=== PATIENT | male | born 1980 | race Caucasian/White ===

== ENCOUNTER 2022-11-26 05:57 | Emergency (ER) | payer OTHER ==
[~2022-11-26] VITALS: Ht 177.8 cm; Wt 100.7 kg
[~2022-11-26 05:57] MED LIST: AMPDEX10CR PO; AMPDEX5; ERYT.5TO RIGHTEYE; HYDACE5 PO; Norco 5-325 Ta1 EACH PO; OFLO.3OPSO RIGHTEYE
== END 2022-11-26 07:36 | disposition home or self-care (01) ==
LOC: ER 05:57
DX: R04.2 Hemoptysis (principal); U07.1 COVID-19; Z88.0 Allergy status to penicillin; Z88.8 Allergy status to other drugs, medicaments and biological substances
CPT/HCPCS: 36415; 71045; 93005; 93010; 99284-25

== ENCOUNTER 2024-07-06 15:52 | Emergency (ER) | payer OTHER ==
[~2024-07-06] VITALS: Ht 177.8 cm; Wt 96.2 kg
[2024-07-06] MEDS ORDERED: Diphth,Pertuss(Acell),Tet Vac 0.5 ML VIAL IM ONE (16:00)
[2024-07-06 16:01] VITALS: BP 153/108
[2024-07-06] MEDS ORDERED: Ketorolac Tromethamine 30mg Vial IM ONE (17:20)
== END 2024-07-06 18:33 | disposition home or self-care (01) ==
LOC: ER 15:52
DX: S01.01XA Laceration without foreign body of scalp, initial encounter (principal); S06.0X0A Concussion without loss of consciousness, initial encounter; J44.9 Chronic obstructive pulmonary disease, unspecified; I10 Essential (primary) hypertension; W22.8XXA Striking against or struck by other objects, initial encounter; Z88.0 Allergy status to penicillin; Z88.8 Allergy status to other drugs, medicaments and biological substances; Z87.891 Personal history of nicotine dependence
CPT/HCPCS: 12002; 70450; 90471; 90715; 96372-59; 99283-25; J1885

== ENCOUNTER → 2024-09-07 | Outpatient (CLI) | payer OTHER | LOC: LAB SHORT 12:12 → LAB 12:12 | DX: J02.9 Acute pharyngitis, unspecified (principal) | CPT/HCPCS: 87081; 87147 ==

== ENCOUNTER 2025-09-02 11:02 | Emergency (ER) | payer OTHER ==
[~2025-09-02] VITALS: Ht 177.8 cm; Wt 97.5 kg
[2025-09-02 11:29] VITALS: BP 144/80
[2025-09-02] MEDS ORDERED: Oxymetazoline 0.05% Nasal Relief Spray 15mL BTL ONE (12:50)
[2025-09-02] MEDS ORDERED: Lidocaine HCl 4% 5 ML SDA INH ONE (12:50)
== END 2025-09-02 13:45 | disposition home or self-care (01) ==
LOC: ER 11:02
DX: R09.A2 Foreign body sensation, throat (principal); I10 Essential (primary) hypertension; J44.9 Chronic obstructive pulmonary disease, unspecified; Z87.891 Personal history of nicotine dependence; Z88.6 Allergy status to analgesic agent; Z88.0 Allergy status to penicillin; Z79.899 Other long term (current) drug therapy
CPT/HCPCS: 31622; 70360; 99283-25; A9270; J2003